=== PATIENT | female | born 1950 | race Caucasian/White ===

== ENCOUNTER 2019-07-31 09:05 | Outpatient (CLI) | payer MEDICARE, SELFPAY ==
--- NOTE | 2019-07-31 11:00 | NEURO_ITS ---
Patient Number: [id number] Impression: # Complains of lower extremity weakness with bilateral foot drop. Status post ovarian cancer and chemotherapy. # No electrical responses obtained bilaterally from motor or sensory nerves as well as needle/EMG exam. 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 Nerve Conduction Studies Anti Sensory Summary Table Stim Site NR Peak (ms) P-T Amp (?V) Site1 Site2 Delta-P (ms) Dist (cm) Chao (m/s) Left Sup Fibular Anti Sensory (Ant Lat Mall) NO RESPONSE 14 cm NR 14 cm Ant Lat Mall 16.0 Right Sup Fibular Anti Sensory (Ant Lat Mall) NO RESPONSE 14 cm NR 14 cm Ant Lat Mall 16.0 Left Sural Anti Sensory (Lat Mall) NO RESPONSE Calf NR Calf Lat Mall 16.0 Right Sural Anti Sensory (Lat Mall) NO RESPONSE Calf NR Calf Lat Mall 16.0 Motor Summary Table Stim Site NR Onset (ms) O-P Amp (mV) Site1 Site2 Delta-0 (ms) Dist (cm) Chao (m/s) Left Peroneal Motor (Vastus Med) NO RESPONSE Ankle NR Popit NR Right Peroneal Motor (Vastus Med) NO RESPONSE Ankle NR Popit NR Left Tibial Motor (Abd Luis Brev) NO RESPONSE Ankle NR Knee NR Right Tibial Motor (Abd Luis Brev) NO RESPONSE Ankle NR Knee NR F Wave Studies NR F-Lat (ms) L-R F-Lat (ms) Left Peroneal (Mrkrs) (EDB) NO RESPONSE NR Right Peroneal (Mrkrs) (EDB) NO RESPONSE NR Left Tibial (Mrkrs) (Abd Hallucis) NO RESPONSE NR Right Tibial (Mrkrs) (Abd Hallucis) NO RESPONSE NR EMG Side Muscle Nerve Root Ins Act Fibs Amp Dur Recrt Comment Right AntTibialis Dp Br Fibular L4-5 Nml Nml ----- -------- Reduced Right Gastroc Tibial S1-2 Nml Nml ----- -------- Reduced Right Fibularis Long Sup Br Fibular L5-S1 Nml Nml ------ -------- Reduced Right Flex Dig Long Tibial L5-S2 Nml Nml ------ -------- Reduced Right Ext Dig Brev Dp Br Fibular L5, S1 Nml Nml ------ -------- Reduced Left AntTibialis Dp Br Fibular L4-5 Nml Nml ------ -------- Reduced Left Gastroc Tibial S1-2 Nml Nml ------ -------- Reduced Left Fibularis Long Sup Br Fibular L5-S1 Nml Nml ------ -------- Reduced Left Flex Dig Long Tibial L5-S2 Nml Nml ------ -------- Reduced Left Ext Dig Brev Dp Br Fibular L5, S1 Nml Nml ------ -------- Reduced MTDD
== END 2019-07-31 09:06 | disposition home or self-care (01) ==
PROVIDERS: PCP Internal Medicine; Visit Provider Orthopaedic Surgery
DX: M21.371 Foot drop, right foot (principal)
CPT/HCPCS: 95886; 95910

== ENCOUNTER 2021-07-01 13:50 | Outpatient (CLI) | payer MEDICARE, SELFPAY ==
--- NOTE | ~2021-07-01 | DEXA_ITS ---
Bone Density Report Name: CAREN TOLLIVER Age: 71 Sex: Female Ethnicity: White Date of : 1950 Indication: postmenopausal; height loss; cancer; hysterectomy; Referring Provider: RK, NORM Thomas Study: Bone densitometry was performed. Exam Date: July 01, 2021 Accession number: [id number] Bone Density: Region BMD T-score Z-score Classification AP Spine (L1-L4) 1.231 1.7 3.9 Normal Femoral Neck (Left) 0.927 0.7 2.6 Normal Total Hip (Left) 1.050 0.9 2.5 Normal Total Hip Bilateral Avg 1.055 0.9 2.5 Normal Femoral Neck (Right) 0.797 -0.5 1.4 Normal Total Hip (Right) 1.060 1.0 2.5 Normal World Health Organization criteria for BMD impression classify patients as: Normal (T-score at or above -1.0), Osteopenia (T-score between -1.0 and -2.5), or Osteoporosis (T-score at or below -2.5). 10-year Fracture Risk: FRAX not reported because: All T-scores for Spine Total, Hip Total, Femoral Neck at or above -1.0 Clinical Information Provided by Patient: Has the following medical conditions: Cancer, Hysterectomy Patient maximum height was 66 Menopause Age: 50 Drinks caffeinated beverages Onset of menses at age 10 Number of children 4 Impression: The patient has normal bone mass. Discussion: BONE DENSITY IS ABOVE THE MINIMUM DESIRABLE LEVEL AT ALL SKELETAL SITES TESTED. This patient?s bone mineral density is above the minimum desirable level (T-score -1.0 or better) at all sites measured. The patient should follow a healthful lifestyle (good nutrition with adequate calcium and vitamin D, and appropriate weight-bearing exercise). Follow-Up: Consider repeating this study in 5 years or sooner if there is some new clinical indication. Reported by: [facility] on 07/01/2021 2:42:00 PM. Reviewed, dictated and finalized at location AoDnis MARSH
== END 2021-07-01 13:51 | disposition home or self-care (01) ==
PROVIDERS: PCP Internal Medicine; Visit Provider Nurse Practitioner Family
DX: Z78.0 Asymptomatic menopausal state (principal)
CPT/HCPCS: 77080

== ENCOUNTER 2021-09-13 09:59 | Emergency (ER) | payer MEDICARE, SELFPAY ==
[2021-09-13] VITALS (7 sets, daily range): BP systolic 129–148; BP diastolic 54–84; PULSE 86–113; RESP 17–94; TEMP 36.6; O2SAT 96–100
--- NOTE | ~2021-09-13 | XR_ITS ---
XR chest 2V DATE: 09/13/2021 11:23 INDICATION: Cough, shortness of breath TECHNIQUE: AP and lateral views COMPARISON: 01/01/2015 PA and lateral chest FINDINGS: Right Port-A-Cath catheter tip is situated near the superior cavoatrial junction. Cardiomegaly. Large hiatal hernia. There is mild infiltrate or atelectasis in the lower lung zones. N o pleural effusion or pulmonary vascular congestion or pneumothorax. Diffuse osteopenia. Degenerative changes of the cervical and to a lesser extent thoracic spine. IMPRESSION: Right Port-A-Cath Cardiac megaly Large hiatal hernia Mild infiltrate or atelectasis at the lung bases Reviewed, dictated and finalized at location A.
--- NOTE | 2021-09-13 10:13 | ECG_ITS ---
Measurements Intervals [place] Rate: 88 P: 13 NM: 157 QRS: 6 QRSD: 86 T: 10 QT: 355 QTc: 431 Interpretive Statements SINUS RHYTHM LOW QRS VOLTAGE IN PRECORDIAL LEADS CONSIDER INFERIOR INFARCT, AGE INDETERMINATE BASELINE ARTIFACT- II, III, AVF, V5-V6 ABNORMAL ECG Electronically Signed On 09-13-2021 14:08:04 CDT by Sae Gregg D.O.
[2021-09-13 10:37] LABS: Basophils Percent Auto 0.3 % (0.2-1.2); Eosinophils Absolute Auto 0.1 K/mm3 (0-0.3); Eosinophils Percent Auto 0.4 % (0-4.4); Hemoglobin 8.5 g/dL (12.0-15.0); Immature Granulocyte Absolute 0.07 K/mm3 (0.00-0.031); Immature Granulocyte Percent A 0.6 % (0-0.5); Lymphocytes Absolute Auto 1.37 K/mm3 (0.9-3.2); Lymphocytes Percent Auto 12.2 % (18.3-44.2); Mean Corpuscular HGB Conc 30.4 g/dl (32-36); Mean Corpuscular Hemoglobin 29.2 pg (26-34); Mean Corpuscular Volume 96.2 fl (80-100); Mean Platelet Volume 10.5 fl (7.4-10.4); Monocytes Absolute Auto 1.2 K/mm3 (0.1-0.6); Monocytes Percent Auto 10.4 % (2.6-8.5); Neutrophils Absolute Auto 8.5 K/mm3 (1.3-6.7); Neutrophils Percent Auto 76.1 % (45.5-73.1); Platelet Count Result 177 k/mm3 (150-375); Red Blood Count 2.91 M/mm3 (4.2-5.4); Red Cell Distribution Width 16.8 % (11.5-14.5); White Blood Count 11.2 K/mm3 (4.5-10.0)
[2021-09-13 10:47] LABS: Alanine Aminotransferase 24 U/L (6-35); Albumin Level 3.9 g/dL (3.5-5.1); Alkaline Phosphatase 107 U/L (38-126); Anion Gap 7 mmol/L (8-16); Aspartate Amino Transferase 43 U/L (14-36); Bilirubin,Total 0.4 mg/dL (0.2-1.3); Blood Urea Nitrogen 29 mg/dL (7-17); Calcium 8.3 mg/dL (8.4-10.2); Carbon Dioxide 27 mmol/L (22-30); Chloride 104 mmol/L (98-107); Estimated CRCL calculation 27 ml/min; Estimated Glomerular Filt Rate 20; Glucose 170 mg/dL (65-110); Potassium 4.6 mmol/L (3.4-5.0); Sodium 138 mmol/L (137-145)
[2021-09-13] MEDS: predniSONE 20 MG TABLET 60 MG PO (11:47)
[2021-09-13] MEDS: ALBUTEROL SULFATE NEB 2.5 MG/3 ML INH 5 MG INHALATION ×3 (11:50→12:25)
[2021-09-13] MEDS: IPRATROPIUM BR 0.02% INH SOLN 0.5 MG/2.5 ML VIAL INHALATION ×3 (11:50→12:25)
--- NOTE | 2021-09-13 12:04 | ED.URI ---
HPI - URI/Sore Throat General Chief Complaint: Upper Respiratory Infection Stated Complaint: wheeze/diff breathing Time Seen by Provider: 09/13/21 10:58 History of Present Illness HPI Narrative: 71-year-old female presenting with difficulty breathing, she does have a history of COPD, states that she also has a cough, no fevers no chills, no nausea or vomiting, no chest pain. Related Data Allergies Allergy/AdvReac Type Severity Reaction Status Date / Time lisinopril Allergy Mild Verified 07/30/08 15:28 Review of Systems Review of Systems: CONST: No fever. HEENT: No sore throat C/V: No chest pain RESP: Cough and difficulty breathing GI: No nausea or vomiting : No dysuria. M/S: No joint pain. SKIN: No rash. NEURO: [No headache or focal numbness or weakness] PSYCH: [No depression] Exam Narrative: EXAMINATION OF ORGAN SYSTEMS/BODY AREAS: Constitutional: Vital signs per nursing GENERAL:[No acute distress, non-toxic appearing.] HEAD: Normal with no signs of head trauma. EYES: EOMI, conjunctiva normal ENT: Hearing grossly intact LUNGS: End expiratory wheezing HEART: [Regular rate and rhythm] ABD: [Soft], [nontender to palpation] EXT: Normal range of motion SKIN: [No rashes or lesions.] NEURO: [Alert and oriented x 3. No gross focal sensory or strength deficits.] PSYCH: Normal affect Course Vital Signs Vital signs: Vital Signs Temperature 97.9 F 09/13/21 10:09 Pulse Rate 91 09/13/21 10:09 Respiratory Rate 18 09/13/21 10:09 Blood Pressure 133/61 09/13/21 10:09 Pulse Oximetry 97 09/13/21 10:09 Oxygen Delivery Room Air 09/13/21 10:09 Temperature 97.9 F 09/13/21 10:09 Pulse Rate 113 H 09/13/21 13:37 Respiratory Rate 18 09/13/21 13:37 Blood Pressure 148/84 H 09/13/21 13:37 Pulse Oximetry 99 09/13/21 13:37 Oxygen Delivery Room Air 09/13/21 13:12 MDM - URI/Sore Throat MDM Narrative Medical decision making narrative: ED COURSE AND MEDICAL DECISION MAKIN-year-old female with acute dyspnea and wheezing likely due to acute COPD exacerbation based on history and exam. Patient is hemodynamically stable. Nebulizer treatments are started and steroids given orally. Patient monitored in the ED for a couple of hours and on reevaluation is feeling significantly better. No respiratory distress or accessory muscle use. Good air movement bilateral lungs. Prescriptions for [azithromycin and steroid course] provided. She is given strict return precautions and patient is discharged in stable/improved condition. Pulse oximetry interpretation: Not hypoxic. Disposition: Discharged home in stable/improved condition. Lab Data Result diagrams: 09/13/21 10:31 09/13/21 10:31 Labs: Lab Results 09/13/21 09/13/21 Range/Units 10:31 10:31 WBC 11.2 H (4.5-10.0) K/mm3 RBC 2.91 L (4.2-5.4) M/mm3 Hgb 8.5 L (12.0-15.0) g/dL Hct 28.0 L (37.0-47.0) % MCV 96.2 (80-100) fl MCH 29.2 (26-34) pg MCHC 30.4 L (32-36) g/dl RDW 16.8 H (11.5-14.5) % Plt Count 177 (150-375) k/mm3 MPV 10.5 H (7.4-10.4) fl Immature Gran % (Auto) 0.6 H (0-0.5) % Neut % (Auto) 76.1 H (45.5-73.1) % Lymph % (Auto) 12.2 L (18.3-44.2) % Gordon % (Auto) 10.4 H (2.6-8.5) % Eos % (Auto) 0.4 (0-4.4) % Baso % (Auto) 0.3 (0.2-1.2) % Lymph # (Auto) 1.37 (0.9-3.2) K/mm3 Gordon # (Auto) 1.2 H (0.1-0.6) K/mm3 Eos # (Auto) 0.1 (0-0.3) K/mm3 Baso # (Auto) 0.0 (0.0-0.1) K/mm3 Abs Immat Gran (auto) 0.07 H (0.00-0.031) K/mm3 Absolute Neuts (auto) 8.5 H (1.3-6.7) K/mm3 Absolute Nucleated RBC 0.0 (0.0-0.012) K/mm3 Nucleated RBC % 0.0 (0.0-0.2) % Sodium 138 (137-145) mmol/L Potassium 4.6 (3.4-5.0) mmol/L Chloride 104 (98-107) mmol/L Carbon Dioxide 27 (22-30) mmol/L Anion Gap 7 L (8-16) mmol/L BUN 29 H (7-17) mg/dL Creatinine 2.40 H (0.7-1.0) mg/dL Estim Creat Clear Calc 27 ml/min
[2021-09-13] MEDS: AZITHROMYCIN 250 MG TABLET 500 MG PO (12:47)
== END 2021-09-13 13:39 | disposition home or self-care (01) ==
PROVIDERS: Emergency Provider Emergency Medicine
DX: J44.9 Chronic obstructive pulmonary disease, unspecified (principal); R94.31 Abnormal electrocardiogram [ECG] [EKG]
CPT/HCPCS: 36415; 71046; 80053; 85025; 93005; 94640; 99283; A9270; J7512